=== PATIENT | male | born 1975 | race Caucasian/White ===

== ENCOUNTER → 2024-08-24 09:07 | Outpatient (REF) | payer BC, SELFPAY ==
[2024-08-24 11:58] LABS: ALT (SGPT) 44 U/L (0-50); AST (SGOT) 28 U/L (17-59); Albumin 4.9 g/dl (3.5-5.0); Alkaline Phosphatase 65 U/L (38-126); Blood Urea Nitrogen 19 mg/dl (9-20); Calcium 9.9 mg/dl (8.4-10.2); Carbon Dioxide 22 mmol/L (22-30); Chloride 104 mmol/L (98-107); Glucose 100 mg/dl (70-99); HDL Cholesterol 51 mg/dl; LDL Cholesterol, Calculated 119 mg/dl; Potassium 4.7 mmol/L (3.5-5.1); Sodium 142 mmol/L (135-145); Total Bilirubin 0.7 mg/dl (0.2-1.3); Total Cholesterol 209 mg/dl (50-199); Total Protein 7.7 g/dl (6.3-8.2); Triglyceride 196 mg/dl (10-149); Very Low Density Lipoprotein 39 mg/dl (0-30); eGFR > 60.00
== END ==
LOC: REG 09:07
PROVIDERS: ATTENDING PHYSICIAN Family Medicine
DX: E66.09 Other obesity due to excess calories (principal); E78.00 Pure hypercholesterolemia, unspecified; R79.9 Abnormal finding of blood chemistry, unspecified; Z00.00 Encounter for general adult medical examination without abnormal findings
CPT/HCPCS: 36415; 80053; 80061